=== PATIENT | female | born 1980 | race Caucasian/White ===

== ENCOUNTER 2022-05-04 13:25 | Outpatient (CLI) | payer BC, SELFPAY | END 2022-05-04 13:26 | disposition home or self-care (01) | LOC: INJ CL 13:26 | PROVIDERS: PCP Family Medicine; Visit Provider Family Medicine | DX: M53.3 Sacrococcygeal disorders, not elsewhere classified (principal) | CPT/HCPCS: 27096; J0702; Q9966 ==

== ENCOUNTER 2023-06-14 08:23 | Outpatient (CLI) | payer BC, SELFPAY | END 2023-06-14 08:24 | disposition home or self-care (01) | LOC: INJ CL 08:24 | PROVIDERS: PCP Family Medicine; Visit Provider Family Medicine | DX: M53.3 Sacrococcygeal disorders, not elsewhere classified (principal) | CPT/HCPCS: 27096; J0702; Q9966 ==

== ENCOUNTER 2024-04-10 07:28 | Outpatient (CLI) | payer BC, SELFPAY | END 2024-04-10 07:29 | disposition home or self-care (01) | LOC: INJ CL 07:29 | PROVIDERS: PCP Family Medicine; Visit Provider Family Medicine | DX: M53.3 Sacrococcygeal disorders, not elsewhere classified (principal) | CPT/HCPCS: 27096; J0702; Q9966 ==